=== PATIENT | female | born 1990 | race Caucasian/White ===

== ENCOUNTER 2017-07-27 13:03 | Emergency (ER) | payer OTHER ==
[~2017-07-27] VITALS: Ht 152.4 cm; Wt 68.0 kg
[~2017-07-27 13:03] MED LIST: AMOXIL 875 MG875 MG PO; CIPRO 500MG (E500 MG PO; OXYCODONE5 M1 PO; ZOFRAN ODT4 MG PO
[2017-07-27 13:08] VITALS: BP 150/72
--- NOTE | 2017-07-27 14:27 | ED GENERAL ADULT ---
History of Present Illness General Chief Complaint: General Adult Stated Complaint: ABCESS ON RT LEG AND BUMP ON EYE Source: patient Exam Limitations: no limitations Vital Signs & Intake/Output Vital Signs & Intake/Output Vital Signs Date Time Temp Pulse Resp B/P B/P Pulse O2 O2 Flow FiO2 Mean Ox Delivery Rate 07/27 1308 98.4 100 18 150/72 96 Room Air Allergies Coded Allergies: MDX - Chlordiazepoxide (Chlordiazepoxide) (UNKNOWN 02/26/15) FROM [facility] (CHLORDIAZEPOXIDE AND CLIDINIUM) MDX - Clidinium (Clidinium) (UNKNOWN 02/26/15) FROM [facility] Reconcile Medications Sulfamethoxazole/Trimethoprim (Bactrim Ds Tablet) 800 MG-160 MG TABLET 1 TAB PO BID cellulitis Triage Note: PT TO ER C/C ?STYE TO LEFT EYE AND ABSCESS TO LEFT ?BUTTOCK. Triage Nurses Notes Reviewed? yes Onset: Gradual Duration: day(s): Timing: constant : No Patient currently breastfeeds: No HPI: 27-year-old female with a history of migraines, IBS, anxiety presenting with tender draining lump to right buttock x3 days. Endorses green drainage. Reports she had a similar one to the back of her right thigh last week that she popped had and drained. Denies fevers, nausea, vomiting. Also c/o tender lump to lower left eye lid x2-3 days. No drainage, eye pain, or visual changes. (Miri Boucher) Past History Travel History Traveled to [place] past 21 day No Medical History Any Pertinent Medical History? see below for history Neurological: migraine EENT: NONE Cardiovascular: NONE Respiratory: NONE Gastrointestinal: irritable bowel syndrome Hepatic: NONE Renal: NONE Musculoskeletal: osteoarthritis, C DISC HERNIATION Psychiatric: anxiety Endocrine: NONE Blood Disorders: NONE Cancer(s): NONE REFRIGERATION MANAGER/Reproductive: NONE History of MRSA: No History of VRE: No History of CDIFF: No Surgical History Surgical History: non-contributory, N Psychosocial History Who do you live with Patient/Self Services at Home NONE What is your primary language Filipino Tobacco Use: Current Daily Use Daily Tobacco Use Amount/Type: =< 4 Cigarettes daily Family History Family History, If Any: Relation not specified for: Diabetes mellitus in maternal grandfather Kidney disease in mother Hx Contributory? No (Miri Boucher) Review of Systems Review of Systems Constitutional: Reports: no symptoms. EENTM: Reports: see HPI. Denies: blurred vision, double vision, visual changes, eye pain, eye drainage, eye tearing. Respiratory: Reports: no symptoms. Cardiovascular: Reports: no symptoms. GI: Reports: no symptoms. Genitourinary: Reports: no symptoms. Musculoskeletal: Reports: no symptoms. Skin: Reports: see HPI (abscess). Neurological/Psychological: Reports: no symptoms. Hematologic/Endocrine: Reports: no symptoms. Immunologic/Allergic: Reports: no symptoms. (Miri Boucher) Physical Exam Physical Exam General Appearance: well developed/nourished, no apparent distress, alert, awake , comfortable Head: atraumatic, normal appearance Eyes: Bilateral: PERRL, EOMI. Neck: normal inspection Respiratory: normal breath sounds, lungs clear Cardiovascular: regular rate/rhythm Gastrointestinal: soft, non-tender Back: normal inspection Extremities: normal inspection Neurologic/Psych: awake, alert, oriented x 3, normal gait, normal mood/affect Skin: intact, normal color, warm/dry, Tender fluctuance mass to right buttock with surrounding erythema and induration. No drainage. Comments: Punctate tender lesion to external left lower lid. No lid inflammation or erythema. No drainage. Core Measures ACS in differential dx? No CVA/TIA Diagnosis: No Sepsis Present: No Sepsis Focused Exam Completed? No (Miri Boucher) Progress Differential Diagnoses I considered the following diagnoses in my evaluation of the patient: [abscess vs cellulitis vs hordeolum vs chalazion] Plan of Care: Current Medications Sig/[place] Start time Last Medication Dose Stop Time Status Admin Lidocaine 20 ML ONCE ONE 07/27 144 UNVr (Lidocaine 1%) 07/27 1446 Instructed to use warm compresses for left eye hordeolum. I&D performed on right buttock abscess and expressed large amount of puruelent yellow drainage. Wound packed and pt counseled on wound care. Started on bactrim and will f/u in 2 days for wound check. Given strict return precautions. Initial ED EKG: none (Miri Boucher) Departure Departure Disposition: HOME OR SELF CARE Condition: Stable Clinical Impression Primary Impression: Abscess Secondary Impressions: Cellulitis, Hordeolum Referrals: Patient Has No Primary Care Dr (PCP/Family) Additional Instructions: Apply warm compresses to left eye 2-3 times daily. Do sitz baths 2-3 times daily as we discussed. Take Bactrim as prescribed. Follow-up in 2 days for a wound recheck. Return to emergency department for any new or worsening symptoms. Departure Forms: Customer Survey General Discharge Information Prescriptions: Current Visit Scripts Sulfamethoxazole/Trimethoprim (Bactrim Ds Tablet) 1 TAB PO BID #20 TAB (Miri Boucher) PA/AVIATION SAFETY TECHNICIAN Co-Sign Statement Statement: ED Attending supervision documentation- I saw and evaluated the patient. I have also reviewed all the pertinent lab results and diagnostic results. I agree with the findings and the plan of care as documented in the PA's/AVIATION SAFETY TECHNICIAN's documentation. x I have reviewed the ED Record and agree with the PA's/AVIATION SAFETY TECHNICIAN's documentation. [] Additions or exceptions (if any) to the PAs/AVIATION SAFETY TECHNICIAN's note and plan are summarized below: [] (Pamela VILLELA,Kaiden) Procedures Incision and Drainage Site: right buttock Blade Size: 11 I & D Procedure: Yes: betadine prep, sterile drapes applied. Progress: Local injection with 1% lido. Incision with 11 blade. Expressed large purulent drainage. Additional locuations broken up with hemostat and irrigation. (Miri Boucher) Critical Care Note Critical Care Note Critical Care Time: non-applicable (Miri Boucher)
[2017-07-27] MEDS ORDERED: BACTRIM DS TAB1 EACH PO (15:47)
== END 2017-07-27 15:50 ==
LOC: ERH 13:03
DX: L02.31 Cutaneous abscess of buttock (principal); H00.015 Hordeolum externum left lower eyelid; L03.90 Cellulitis, unspecified
CPT/HCPCS: J2001